=== PATIENT | male | born 1930 | race Caucasian/White ===

== ENCOUNTER 2017-02-25 11:19 | Emergency (ER) | payer MEDICARE, MEDICAID ==
[2007-08-09 22:49] VITALS: BP 139/67
[~2017-02-25] VITALS: Ht 180.3 cm; Wt 98.2 kg
[~2017-02-25 11:19] MED LIST: ACTOPLUS MET 851 TAB PO; ASPIR-LOW81 MG PO; ASPIRIN E.C. 8181 MG PO; ATACAND PO; CEPHALEXIN500 M1 PO; COLACE 100100 MG/CAP PO; DIOVAN HCT 25 M1 TA1 PO; DYAZIDE 25 MG-31 CAP PO; EXELON PAT4.6 MG/24 TD; FEOSOL65 MG PO; FERROUS SULFATE65 MG PO; FLOMAX 0.40.4 MG/CAP PO; GENTAMICIN EYE D5 ML OD; GERI-LANTA 355355 ML PO; GLIPIZIDE10 MG PO; GLUCOTROL XL10 MG PO; KEPPRA 500MG500 MG PO; LEVSIN ORA0.125 MG/M PO; LORTAB; LOTRISONE CREAM15 GM TP; NORCO 325 MG-51 TAB PO; NOVOLOG 100U100 U/M1 SC; PRIL40; PRIL40 PO; PROTONIX 40MG T40 MG PO; PROZAC 20MG20 MG; PROZAC 20MG20 MG PO; REFRESH TEARS 330 ML OU; REMERON30 MG PO; RITALIN10 MG PO; SEROQUEL 2525 MG/TAB PO; SINGULAIR 110 MG/TAB PO; TESSALON PERLE200 MG PO; TOVIAZ4 MG PO; TRIAMTERENE W/H1 CAP PO; TYLENOL 325MG325 MG PO; ULTRAM 50MG TAB50 MG PO; VITAMIN C500 MG PO; ZITHROMAX Z PA250 MG PO; ZOFRAN 4MG T4 MG/TAB PO; ZOFRAN ODT4 MG PO
[2017-02-25 11:22] VITALS: BP 158/65; PULSE 62; TEMP 98.2
== END 2017-02-25 12:03 | disposition home or self-care (01) ==
LOC: COL.ER 11:19
DX: S02.5XXA Fracture of tooth (traumatic), initial encounter for closed fracture (principal); X58.XXXA Exposure to other specified factors, initial encounter; K08.89 Other specified disorders of teeth and supporting structures; J44.9 Chronic obstructive pulmonary disease, unspecified; F32.9 Major depressive disorder, single episode, unspecified; G40.909 Epilepsy, unspecified, not intractable, without status epilepticus; Z79.4 Long term (current) use of insulin

== ENCOUNTER 2018-04-22 08:14 | Observation (INO) | payer MEDICARE, MEDICAID ==
[~2018-04-22] VITALS: Ht 180.3 cm; Wt 99.2 kg
[2018-04-22 08:37] LABS: BASO # 0.1 (0.0-0.2); BASO % 1.1 % (0.0-2.0); EOS # 0.2 (0.0-0.7); EOS % 2.4 % (0-4.0); GRAN # 3.7 (1.4-6.5); GRAN % 50.5 % (42.2-75.2); HEMOGLOBIN 11.7 g/dl (13.5-18.0); LYMPH # 2.5 (1.2-3.4); LYMPH % 34.2 % (20.0-51.0); MEAN CELL VOLUME 77 fl (80.0-100.0); MEAN CORPUSCULAR HEMOGLOBIN 25 pg (27.0-31.0); MEAN CORPUSCULAR HGB CONC 32 g/dl (33.0-37.0); MEAN PLATELET VOLUME 10.1 fl (7.4-10.4); MONO # 0.9 (0.1-0.6); MONO % 11.5 % (1.7-9.3); PLATELET COUNT 291 K/mm3 (130-400); REDCELL DISTRIBUTION WIDTH-CV 15.7 % (11.5-14.5)
[2018-04-22 08:40] LABS: HEMATOCRIT 36.1 % (42.0-52.0)
[2018-04-22 08:51] LABS: ALBUMIN 3.5 gm/dL (3.5-5.0); BILIRUBIN,TOTAL 0.5 mg/dL (0.0-1.0); CALCIUM 8.5 mg/dL (8.4-10.2); CREATININE, serum 1.06 mg/dL (0.66-1.25); TOTAL PROTEIN 6.6 gm/dL (6.4-8.2)
[2018-04-22 08:52] LABS: C-REACTIVE PROTEIN 1.3 mg/dL (0.0-0.9)
[2018-04-22 09:06] LABS: PROLACTIN 20.5 ng/mL (3.7-17.9)
[2018-04-22] MEDS ORDERED: CELEXA 20MG20 MG/TAB PO (09:18)
[2018-04-22] MEDS ORDERED: FERROUS SU325 MG/TAB PO (09:20)
[2018-04-22] MEDS ORDERED: NEURONTIN300 MG/CAP PO (09:21)
[2018-04-22] MEDS ORDERED: FLOMAX 0.40.4 MG/CAP PO (09:21)
[2018-04-22] MEDS ORDERED: HUMALOG PEN100 U/ML SQ (09:22)
[2018-04-22] MEDS ORDERED: DITROPAN XL 5MG5 M1 PO (09:23)
[2018-04-22] MEDS ORDERED: LANTUS SOLOS100 U/ML SQ (09:23)
[2018-04-22] MEDS ORDERED: ZANTAC 150MG T150 MG PO (09:24)
[2018-04-22] MEDS ORDERED: REFRESH TEARS 330 ML OP (09:25)
[2018-04-22] MEDS ORDERED: REMERON30 MG PO (09:25)
[2018-04-22] MEDS ORDERED: VITAMIN C500 MG PO (09:27)
[2018-04-22] MEDS ORDERED: SYNTHROID0.1 MG/TAB PO (09:27)
[2018-04-22 10:05] LABS: COLLECTION METHOD CLEAN CATCH
[2018-04-22 10:21] LABS: PH 7 (5-8); SQUAMOUS EPITHELIAL None Seen /hpf; URINE APPEARANCE Clear; URINE BACTERIA None Seen /hpf; URINE BILIRUBIN Negative (NEGATIVE); URINE BLOOD Negative (NEGATIVE); URINE COLOR Colorless; URINE GLUCOSE Negative (NEGATIVE); URINE KETONE Negative (NEGATIVE); URINE LEUKOCYTE ESTERASE Negative (NEGATIVE); URINE NITRATE Negative (NEGATIVE); URINE PROTEIN(semi-quant) Negative (NEGATIVE); URINE RBC 0-2 /hpf; URINE UROBILINOGEN Negative (NEGATIVE)
[2018-04-22 11:07] VITALS: BP 173/71; PULSE 67; TEMP 98.2
[2018-04-22 11:33] VITALS: BP 136/68; PULSE 72; TEMP 97.2
[2018-04-22 16:26] VITALS: BP 172/71; PULSE 69; TEMP 98.4
[2018-04-22 20:48] VITALS: BP 144/72; PULSE 55; TEMP 97.7
[2018-04-22 23:48] VITALS: BP 164/61; PULSE 52; TEMP 97.9
[2018-04-23 04:19] VITALS: BP 151/83; PULSE 55; TEMP 97.8
[2018-04-23 07:52] LABS: BASO # 0.1 (0.0-0.2); BASO % 1.5 % (0.0-2.0); EOS # 0.2 (0.0-0.7); EOS % 3.8 % (0-4.0); GRAN # 2.5 (1.4-6.5); HEMATOCRIT 33.8 % (42.0-52.0); HEMOGLOBIN 10.8 g/dl (13.5-18.0); LYMPH # 2.3 (1.2-3.4); LYMPH % 38.1 % (20.0-51.0); MEAN CELL VOLUME 78 fl (80.0-100.0); MEAN CORPUSCULAR HEMOGLOBIN 25 pg (27.0-31.0); MEAN CORPUSCULAR HGB CONC 32 g/dl (33.0-37.0); MEAN PLATELET VOLUME 10.3 fl (7.4-10.4); MONO # 0.9 (0.1-0.6); MONO % 15.4 % (1.7-9.3); PLATELET COUNT 267 K/mm3 (130-400); RED BLOOD COUNT 4.33 M/mm3 (4.20-5.60); REDCELL DISTRIBUTION WIDTH-CV 15.9 % (11.5-14.5)
[2018-04-23 07:57] LABS: CALCIUM 7.8 mg/dL (8.4-10.2); CREATININE, serum 1.1 mg/dL (0.66-1.25); POTASSIUM 4.3 mmol/L (3.4-5.0)
[2018-04-23 08:14] VITALS: BP 151/53; PULSE 62; TEMP 97.9
[2018-04-23] MEDS ORDERED: KEPPRA 500MG500 MG PO (11:19)
[2018-04-23 12:33] VITALS: BP 148/69; PULSE 65; TEMP 98.2
[2018-04-23 13:31] VITALS: BP 148/69; PULSE 65; TEMP 98.2
[2018-04-23 16:38] VITALS: BP 168/81; BP 468/81; PULSE 67; TEMP 97.9
== END 2018-04-23 17:47 ==
LOC: COL.ER 08:14 → MEDICAL 09:40
PROVIDERS: Emergency Medicine; Family Medicine
DX: R56.9 Unspecified convulsions (principal); E11.40 Type 2 diabetes mellitus with diabetic neuropathy, unspecified; E11.22 Type 2 diabetes mellitus with diabetic chronic kidney disease; N18.9 Chronic kidney disease, unspecified; E03.9 Hypothyroidism, unspecified; F32.9 Major depressive disorder, single episode, unspecified; D53.9 Nutritional anemia, unspecified; N40.0 Benign prostatic hyperplasia without lower urinary tract symptoms; N32.89 Other specified disorders of bladder; K21.9 Gastro-esophageal reflux disease without esophagitis; Z96.652 Presence of left artificial knee joint; Z79.4 Long term (current) use of insulin; Z86.73 Personal history of transient ischemic attack (TIA), and cerebral infarction without residual deficits
CPT/HCPCS: 99238; A9585; J1650; J1815; J7030

== ENCOUNTER 2018-05-07 09:38 | Emergency (ER) | payer MEDICARE, MEDICAID ==
[2007-08-09 22:49] VITALS: BP 139/67
[~2018-05-07] VITALS: Ht 177.8 cm; Wt 84.1 kg
[2018-05-07] VITALS (42 sets, daily range): BP systolic 169; BP diastolic 81; PULSE 59; TEMP 97.9; O2SAT 93–100
[~2018-05-07 09:38] MED LIST changes: +CELEXA 20MG20 MG/TAB PO; +DITROPAN XL 5MG5 M1 PO; +FERROUS SU325 MG/TAB PO; +HUMALOG PEN100 U/ML SQ; +LANTUS SOLOS100 U/ML SQ; +NEURONTIN300 MG/CAP PO; +REFRESH TEARS 330 ML OP; +SYNTHROID0.1 MG/TAB PO; +ZANTAC 150MG T150 MG PO
[2018-05-07 10:27] LABS: BASO # 0.1 (0.0-0.2); BASO % 1.3 % (0.0-2.0); EOS # 0.2 (0.0-0.7); EOS % 3.3 % (0-4.0); GRAN # 4.1 (1.4-6.5); GRAN % 57.6 % (42.2-75.2); HEMOGLOBIN 11.2 g/dl (13.5-18.0); LYMPH # 1.7 (1.2-3.4); LYMPH % 24.6 % (20.0-51.0); MEAN CELL VOLUME 80 fl (80.0-100.0); MEAN CORPUSCULAR HEMOGLOBIN 25 pg (27.0-31.0); MEAN CORPUSCULAR HGB CONC 31 g/dl (33.0-37.0); MEAN PLATELET VOLUME 10.7 fl (7.4-10.4); MONO # 0.9 (0.1-0.6); MONO % 12.8 % (1.7-9.3); PLATELET COUNT 277 K/mm3 (130-400); RED BLOOD COUNT 4.53 M/mm3 (4.20-5.60); REDCELL DISTRIBUTION WIDTH-CV 15.4 % (11.5-14.5)
[2018-05-07 10:38] LABS: ALANINE AMINOTRANSFERASE 31 U/L (21-72); ALBUMIN 3.3 gm/dL (3.5-5.0); ALKALINE PHOSPHATASE 62 U/L (50-136); ANION GAP 7 mmol/L (7-16); AST,SGOT 24 U/L (15-37); BILIRUBIN,TOTAL 0.3 mg/dL (0.0-1.0); BLOOD UREA NITROGEN 27 mg/dL (9-20); CALCIUM 8.3 mg/dL (8.4-10.2); CARBON DIOXIDE 28 mmol/L (22-30); CHLORIDE 103 mmol/L (98-107); CREATININE, serum 1.24 mg/dL (0.66-1.25); GLUCOSE 117 mg/dL (74-106); POTASSIUM 3.9 mmol/L (3.4-5.0); SODIUM 138 mmol/L (137-145); TOTAL PROTEIN 6.3 gm/dL (6.4-8.2)
[2018-05-07 10:53] LABS: TROPONIN-I < 0.012 ng/mL (0.000-0.034)
[2018-05-07 10:55] LABS: PROLACTIN 12.2 ng/mL (3.7-17.9)
[2018-05-07 12:37] LABS: COLLECTION METHOD CLEAN CATCH
[2018-05-07 12:46] LABS: PH 6 (5-8); SQUAMOUS EPITHELIAL None Seen /hpf; URINE APPEARANCE Clear; URINE BACTERIA None Seen /hpf; URINE BILIRUBIN Negative (NEGATIVE); URINE BLOOD Negative (NEGATIVE); URINE COLOR Straw; URINE GLUCOSE Negative (NEGATIVE); URINE KETONE Negative (NEGATIVE); URINE LEUKOCYTE ESTERASE Negative (NEGATIVE); URINE NITRATE Negative (NEGATIVE); URINE PROTEIN(semi-quant) Negative (NEGATIVE); URINE RBC 0-2 /hpf; URINE UROBILINOGEN Negative (NEGATIVE)
[2018-05-07] MEDS ORDERED: KEPPRA250 MG PO (12:51)
[2018-05-07] MEDS ORDERED: HUMALOG100 U/ML SQ (21:00)
[2018-05-07] MEDS ORDERED: LANTUS SOLOS100 U/ML SQ (21:02)
[2018-05-08] VITALS (86 sets, daily range): O2SAT 97–100
== END 2018-05-07 15:18 | disposition home or self-care (01) ==
LOC: COL.ER 09:38
PROVIDERS: Emergency Medicine
DX: R41.82 Altered mental status, unspecified (principal); E03.9 Hypothyroidism, unspecified; E11.9 Type 2 diabetes mellitus without complications; N40.0 Benign prostatic hyperplasia without lower urinary tract symptoms

== ENCOUNTER 2018-05-07 20:24 | Observation (INO) | payer MEDICARE, MEDICAID ==
[~2018-05-07] VITALS: Wt 98.6 kg
[~2018-05-07 20:24] MED LIST changes: +KEPPRA250 MG PO
[2018-05-07] MEDS ORDERED: HUMALOG100 U/ML SQ (21:00)
[2018-05-07] MEDS ORDERED: LANTUS SOLOS100 U/ML SQ (21:02)
[2018-05-07 21:17] LABS: TROPONIN-I < 0.012 ng/mL (0.000-0.034)
[2018-05-07 23:56] VITALS: BP 176/85; PULSE 54; TEMP 97
[2018-05-08] VITALS: BP 141/60; PULSE 55; TEMP 97
[2018-05-08 03:33] VITALS: BP 167/53; PULSE 58; TEMP 97.8
[2018-05-08 07:20] VITALS: BP 176/79; PULSE 57; TEMP 98
[2018-05-08 07:21] LABS: BASO # 0.1 (0.0-0.2); BASO % 0.9 % (0.0-2.0); EOS # 0.3 (0.0-0.7); EOS % 3.1 % (0-4.0); GRAN % 61.6 % (42.2-75.2); HEMOGLOBIN 11.5 g/dl (13.5-18.0); LYMPH % 24.2 % (20.0-51.0); MEAN CELL VOLUME 79 fl (80.0-100.0); MEAN CORPUSCULAR HEMOGLOBIN 25 pg (27.0-31.0); MEAN CORPUSCULAR HGB CONC 32 g/dl (33.0-37.0); MEAN PLATELET VOLUME 10.8 fl (7.4-10.4); MONO # 0.8 (0.1-0.6); MONO % 9.8 % (1.7-9.3); PLATELET COUNT 278 K/mm3 (130-400); RED BLOOD COUNT 4.61 M/mm3 (4.20-5.60); REDCELL DISTRIBUTION WIDTH-CV 15.8 % (11.5-14.5)
[2018-05-08 07:28] LABS: ALBUMIN 3.2 gm/dL (3.5-5.0); BILIRUBIN,TOTAL 0.4 mg/dL (0.0-1.0); CREATININE, serum 1.12 mg/dL (0.66-1.25); TOTAL PROTEIN 6.1 gm/dL (6.4-8.2)
[2018-05-08 07:36] LABS: HEMATOCRIT 36.4 % (42.0-52.0)
[2018-05-08 11:08] VITALS: BP 171/60; PULSE 65; TEMP 98.1
[2018-05-08 13:27] LABS: COLLECTION METHOD CLEAN CATCH
[2018-05-08 13:34] LABS: PH 7 (5-8); SQUAMOUS EPITHELIAL None Seen /hpf; URINE APPEARANCE Clear; URINE BACTERIA None Seen /hpf; URINE BILIRUBIN Negative (NEGATIVE); URINE BLOOD Negative (NEGATIVE); URINE COLOR Straw; URINE GLUCOSE Negative (NEGATIVE); URINE KETONE Negative (NEGATIVE); URINE LEUKOCYTE ESTERASE Negative (NEGATIVE); URINE NITRATE Negative (NEGATIVE); URINE PROTEIN(semi-quant) Negative (NEGATIVE); URINE RBC 0-2 /hpf; URINE UROBILINOGEN Negative (NEGATIVE)
[2018-05-08 15:11] VITALS: BP 153/75; PULSE 70; TEMP 98.3
[2018-05-08 20:32] VITALS: BP 185/78; PULSE 65; TEMP 98.5
[2018-05-09] VITALS (7 sets, daily range): BP systolic 135–177; BP diastolic 62–99; PULSE 55–105; TEMP 97.6–98.9
[2018-05-09 08:47] LABS: CALCIUM 7.8 mg/dL (8.4-10.2); CREATININE, serum 0.95 mg/dL (0.66-1.25); MAGNESIUM 1.9 mg/dL (1.6-2.3); POTASSIUM 3.7 mmol/L (3.4-5.0)
[2018-05-10 02:12] VITALS: BP 159/70; PULSE 76; TEMP 98.9
[2018-05-10 06:30] LABS: BASO # 0.1 (0.0-0.2); BASO % 0.5 % (0.0-2.0); EOS # 0.1 (0.0-0.7); EOS % 0.7 % (0-4.0); GRAN # 7.2 (1.4-6.5); GRAN % 68.6 % (42.2-75.2); HEMOGLOBIN 11.5 g/dl (13.5-18.0); LYMPH % 18.8 % (20.0-51.0); MEAN CELL VOLUME 77 fl (80.0-100.0); MEAN CORPUSCULAR HEMOGLOBIN 25 pg (27.0-31.0); MEAN CORPUSCULAR HGB CONC 32 g/dl (33.0-37.0); MEAN PLATELET VOLUME 10.7 fl (7.4-10.4); MONO # 1.2 (0.1-0.6); MONO % 11.1 % (1.7-9.3); PLATELET COUNT 287 K/mm3 (130-400); RED BLOOD COUNT 4.67 M/mm3 (4.20-5.60); REDCELL DISTRIBUTION WIDTH-CV 15.7 % (11.5-14.5)
[2018-05-10 06:46] LABS: CALCIUM 7.5 mg/dL (8.4-10.2); CREATININE, serum 0.95 mg/dL (0.66-1.25); POTASSIUM 3.6 mmol/L (3.4-5.0)
[2018-05-10 07:47] VITALS: BP 155/67; PULSE 72; TEMP 98.5
[2018-05-10 11:02] VITALS: BP 148/64; PULSE 68; TEMP 98.7
[2018-05-10] MEDS ORDERED: LAMICTAL 25MG T25 MG PO ×4 (11:21→14:45)
[2018-05-10] MEDS ORDERED: LAMICTAL 100MG100 MG PO ×2 (11:21)
[2018-05-10] MEDS ORDERED: PRINIVIL10 MG PO (14:32)
[2018-05-10] MEDS ORDERED: KEPPRA 500MG500 MG PO (14:34)
[2018-05-10] MEDS ORDERED: NORVASC 10MG10 MG PO (14:35)
== END 2018-05-10 15:13 ==
LOC: COL.ER 20:24 → MEDICAL 21:43 → ICU 21:43 → MEDICAL 05-08 03:21
PROVIDERS: Emergency Medicine; Nurse Practitioner Family; Physician Assistant
DX: R41.82 Altered mental status, unspecified (principal); E11.40 Type 2 diabetes mellitus with diabetic neuropathy, unspecified; E11.22 Type 2 diabetes mellitus with diabetic chronic kidney disease; N18.3 Chronic kidney disease, stage 3 (moderate); N40.0 Benign prostatic hyperplasia without lower urinary tract symptoms; E03.9 Hypothyroidism, unspecified; F32.9 Major depressive disorder, single episode, unspecified; N32.89 Other specified disorders of bladder; R03.0 Elevated blood-pressure reading, without diagnosis of hypertension; R00.1 Bradycardia, unspecified; R19.7 Diarrhea, unspecified; M25.512 Pain in left shoulder; D50.0 Iron deficiency anemia secondary to blood loss (chronic); K55.20 Angiodysplasia of colon without hemorrhage; Z79.4 Long term (current) use of insulin; Z96.652 Presence of left artificial knee joint; Z86.73 Personal history of transient ischemic attack (TIA), and cerebral infarction without residual deficits; Z82.49 Family history of ischemic heart disease and other diseases of the circulatory system
CPT/HCPCS: A9585; G0378; G8978-GP; G8979-GP; G8987-GO; G8988-GO; J0360; J1650; J1815; J7030

== ENCOUNTER → 2018-05-22 | Outpatient (CLI) | payer MEDICARE, MEDICAID ==
[~2018-05-22] MED LIST changes: +HUMALOG100 U/ML SQ; +LAMICTAL 100MG100 MG PO; +LAMICTAL 25MG T25 MG PO; +NORVASC 10MG10 MG PO; +PRINIVIL10 MG PO
[2018-05-22 10:30] LABS: COLLECTION METHOD CLEAN CATCH
[2018-05-22 10:40] LABS: PH 5 (5-8); SQUAMOUS EPITHELIAL 0-2 /hpf; URINE APPEARANCE Clear; URINE BACTERIA None Seen /hpf; URINE BILIRUBIN Negative (NEGATIVE); URINE BLOOD Negative (NEGATIVE); URINE COLOR Yellow; URINE GLUCOSE Negative (NEGATIVE); URINE KETONE Negative (NEGATIVE); URINE LEUKOCYTE ESTERASE Negative (NEGATIVE); URINE NITRATE Negative (NEGATIVE); URINE PROTEIN(semi-quant) 1+ (NEGATIVE); URINE RBC 0-2 /hpf; URINE UROBILINOGEN Negative (NEGATIVE); URINE WBC 0-2 /hpf
== END ==
LOC: ZLAB.STJ 10:29
PROVIDERS: Internal Medicine
DX: R82.90 Unspecified abnormal findings in urine (principal)

== ENCOUNTER → 2018-07-03 | Outpatient (CLI) | payer MEDICARE, MEDICAID ==
[2018-07-03 09:48] LABS: BASO # 0.1 (0.0-0.2); BASO % 1.5 % (0.0-2.0); EOS # 0.3 (0.0-0.7); EOS % 3.3 % (0-4.0); GRAN # 4.5 (1.4-6.5); GRAN % 56.3 % (42.2-75.2); HEMATOCRIT 39.3 % (42.0-52.0); HEMOGLOBIN 12.4 g/dl (13.5-18.0); LYMPH # 2.1 (1.2-3.4); LYMPH % 26.8 % (20.0-51.0); MEAN CELL VOLUME 77 fl (80.0-100.0); MEAN CORPUSCULAR HEMOGLOBIN 24 pg (27.0-31.0); MEAN CORPUSCULAR HGB CONC 32 g/dl (33.0-37.0); MEAN PLATELET VOLUME 11.9 fl (7.4-10.4); MONO # 0.9 (0.1-0.6); MONO % 11.8 % (1.7-9.3); PLATELET COUNT 373 K/mm3 (130-400); RED BLOOD COUNT 5.12 M/mm3 (4.20-5.60); REDCELL DISTRIBUTION WIDTH-CV 16.2 % (11.5-14.5)
[2018-07-03 14:28] LABS: ALBUMIN 3.5 gm/dL (3.5-5.0); BILIRUBIN,TOTAL 0.3 mg/dL (0.0-1.0); CREATININE, serum 1.24 mg/dL (0.66-1.25); POTASSIUM 4.8 mmol/L (3.4-5.0); TOTAL PROTEIN 6.4 gm/dL (6.4-8.2)
== END ==
LOC: ZLAB.STJ 09:32
PROVIDERS: Internal Medicine
DX: Z01.89 Encounter for other specified special examinations (principal)

== ENCOUNTER → 2018-08-06 | Outpatient (CLI) | payer MEDICARE, MEDICAID ==
[2018-08-06 14:33] LABS: HEMOGLOBIN 11.6 g/dl (13.5-18.0)
[2018-08-06 14:34] LABS: HEMATOCRIT 36.2 % (42.0-52.0)
[2018-08-06 14:43] LABS: CALCIUM 8.7 mg/dL (8.4-10.2); CREATININE, serum 0.99 mg/dL (0.66-1.25); POTASSIUM 4.8 mmol/L (3.4-5.0)
== END ==
LOC: ZLAB.STJ 14:23
PROVIDERS: Internal Medicine
DX: I10 Essential (primary) hypertension (principal); D64.9 Anemia, unspecified

== ENCOUNTER → 2018-08-22 | Outpatient (CLI) | payer MEDICARE, MEDICAID | LOC: ZLAB.STJ 12:09 | DX: R94.6 Abnormal results of thyroid function studies (principal) ==

== ENCOUNTER → 2018-09-12 | Outpatient (CLI) | payer MEDICARE, MEDICAID | LOC: ZLAB.STJ 11:19 | DX: D64.9 Anemia, unspecified (principal) ==

== ENCOUNTER → 2018-10-10 | Outpatient (CLI) | payer MEDICARE, MEDICAID | LOC: ZLAB.STJ 10:32 | DX: E11.40 Type 2 diabetes mellitus with diabetic neuropathy, unspecified (principal) ==

== ENCOUNTER → 2018-11-16 | Outpatient (CLI) | payer MEDICARE, MEDICAID ==
[2018-11-16 16:22] LABS: BASO # 0.1 (0.0-0.2); BASO % 1.7 % (0.0-2.0); EOS # 0.2 (0.0-0.7); EOS % 3.1 % (0-4.0); GRAN # 3.3 (1.4-6.5); GRAN % 46.8 % (42.2-75.2); HEMOGLOBIN 11.6 g/dl (13.5-18.0); LYMPH # 2.6 (1.2-3.4); LYMPH % 36.4 % (20.0-51.0); MEAN CELL VOLUME 80 fl (80.0-100.0); MEAN CORPUSCULAR HEMOGLOBIN 25 pg (27.0-31.0); MEAN CORPUSCULAR HGB CONC 32 g/dl (33.0-37.0); MEAN PLATELET VOLUME 11.3 fl (7.4-10.4); MONO # 0.9 (0.1-0.6); MONO % 11.9 % (1.7-9.3); PLATELET COUNT 339 K/mm3 (130-400); RED BLOOD COUNT 4.58 M/mm3 (4.20-5.60); REDCELL DISTRIBUTION WIDTH-CV 15.9 % (11.5-14.5)
[2018-11-16 16:23] LABS: HEMATOCRIT 36.4 % (42.0-52.0)
[2018-11-16 16:29] LABS: CALCIUM 8.6 mg/dL (8.4-10.2); CREATININE, serum 0.97 mg/dL (0.66-1.25); POTASSIUM 4.7 mmol/L (3.4-5.0)
== END ==
LOC: ZLAB.STJ 15:12
PROVIDERS: Internal Medicine
DX: I10 Essential (primary) hypertension (principal)

== ENCOUNTER → 2018-12-29 | Outpatient (CLI) | payer MEDICARE, MEDICAID ==
[2018-12-29 14:54] LABS: COLLECTION METHOD CLEAN CATCH
[2018-12-29 15:15] LABS: MUCOUS Present /lpf; PH 6 (5-8); SQUAMOUS EPITHELIAL None Seen /hpf; URINE APPEARANCE Clear; URINE BACTERIA None Seen /hpf; URINE BILIRUBIN Negative (NEGATIVE); URINE BLOOD Negative (NEGATIVE); URINE CALCIUM OXALATE CRYSTAL Present /hpf; URINE COLOR Yellow; URINE GLUCOSE Negative (NEGATIVE); URINE KETONE Trace (NEGATIVE); URINE LEUKOCYTE ESTERASE Negative (NEGATIVE); URINE NITRATE Negative (NEGATIVE); URINE PROTEIN(semi-quant) Negative (NEGATIVE); URINE RBC 0-2 /hpf; URINE UROBILINOGEN >=4.0 mg/dL (NEGATIVE)
== END ==
LOC: ZLAB.STJ 14:30
PROVIDERS: Internal Medicine
DX: N18.9 Chronic kidney disease, unspecified (principal)

== ENCOUNTER → 2019-01-01 | Outpatient (CLI) | payer MEDICARE, MEDICAID | LOC: ZLAB.STJ 15:11 | DX: E11.40 Type 2 diabetes mellitus with diabetic neuropathy, unspecified (principal); R94.6 Abnormal results of thyroid function studies ==

== ENCOUNTER → 2019-01-25 | Outpatient (CLI) | payer MEDICARE, MEDICAID ==
[2019-01-25 09:47] LABS: BASO # 0.1 (0.0-0.2); BASO % 1.2 % (0.0-2.0); EOS # 0.5 (0.0-0.7); EOS % 7.1 % (0-4.0); GRAN # 3.1 (1.4-6.5); GRAN % 46.4 % (42.2-75.2); HEMATOCRIT 34.4 % (42.0-52.0); HEMOGLOBIN 10.9 g/dl (13.5-18.0); LYMPH # 2.3 (1.2-3.4); LYMPH % 33.9 % (20.0-51.0); MEAN CELL VOLUME 79 fl (80.0-100.0); MEAN CORPUSCULAR HEMOGLOBIN 25 pg (27.0-31.0); MEAN CORPUSCULAR HGB CONC 32 g/dl (33.0-37.0); MEAN PLATELET VOLUME 10.1 fl (7.4-10.4); MONO # 0.8 (0.1-0.6); MONO % 11.1 % (1.7-9.3); PLATELET COUNT 312 K/mm3 (130-400); RED BLOOD COUNT 4.33 M/mm3 (4.20-5.60); REDCELL DISTRIBUTION WIDTH-CV 16.5 % (11.5-14.5)
[2019-01-25 10:00] LABS: CALCIUM 8.8 mg/dL (8.4-10.2); CREATININE, serum 0.97 (0.66-1.25); POTASSIUM 4.8 mmol/L (3.4-5.0)
== END ==
LOC: ZLAB.STJ 09:39
PROVIDERS: Nurse Practitioner
DX: I10 Essential (primary) hypertension (principal)